=== PATIENT | male | born 1990 | race Caucasian/White ===

== ENCOUNTER 2020-12-08 17:42 | Emergency (ER) | payer MEDICAID, SELFPAY ==
[2020-12-08 17:58] VITALS: BP 134/83; PULSE 100; RESP 16; TEMP 36.8; O2SAT 97; BMI 30.7
--- NOTE | 2020-12-08 18:45 | ED.GENADULT ---
HPI - General Adult General Chief complaint: General Medical Stated complaint: strep Throat? Time Seen by Provider: 12/08/20 18:38 Source: patient Mode of arrival: ambulatory Limitations: no limitations History of Present Illness HPI narrative: 30-year-old male presenting to the ED with complaints of a sore throat with associated chills and congestion with white spots at the back of his throat that started today. Denies any other symptoms complaints or concerns at this time. Denies recent travel or sick contacts. Related Data Previous Rx's Medication Instructions Recorded acetaminophen-codeine 1 tab PO Q8H PRN #10 tab 12/08/20 amoxicillin-pot clavulanate 1 tab PO BID 10 Days #20 tab 12/08/20 [Augmentin] ibuprofen 800 mg PO Q8H PRN #14 tab 12/08/20 Allergies Allergy/AdvReac Type Severity Reaction Status Date / Time bee pollen [BEE STINGS] Allergy Unknown SWELLING Unverified 07/26/20 15:43 cat dander [CATS] Allergy Unknown HIVES Unverified 07/26/20 15:43 selenium sulfide Allergy Unknown hives Verified 12/02/18 00:00 Review of Systems Review of Systems: Constitutional : No Fever, No Chills, No fatigue, No Malaise ENT/Mouth : + sore throat, No runny nose Eyes: No Discharge Cardiovascular : No Chest Pain, No SOB Respiratory : No Cough, No Sputum, No Wheezing, No Smoke Exposure, No Dyspnea Gastrointestinal : No Nausea, No Vomiting, No Diarrhea Genitourinary : No irregular bleeding, No Dysuria, No Urinary Frequency, No Hematuria, No Urinary Incontinence, No Urgency, No Flank Pain, Musculoskeletal : No Myalgia Skin : No rash Neuro : No Headache Yes all other systems are reviewed and are negative [facility] Past Medical History Attestation statement: The following information was validated with the patient. Social History Social History Advance Directives: No Advance Directives Information Provided: Yes Physical Exam Vital Signs: Vital Signs: Last Vital Signs Temp 98.3 F 12/08/20 17:58 Pulse 100 12/08/20 17:58 Resp 16 12/08/20 17:58 BP 134/83 12/08/20 17:58 Pulse Ox 97 12/08/20 17:58 Body Mass Index 30.7 vital signs have been reviewed as normal and appeared to be correct. Blood pressure normal. Heart rate normal. Respiration rate normal. Temperature normal. Oxygen saturation normal. Appearance: Alert. Oriented X3. No acute distress. Head: Normal external exam. Normocephalic. Atraumatic. Eyes: PERRLA. EOMI. Conjunctiva and sclera normal. Eyelids normal. ENT: EAC normal. TM's Normal. Posterior pharynx erythematous with exudate on bilateral tonsils. Uvula midline. Not consistent with peritonsillar abscess. Moist mucous membranes. No trismus noted. No drooling noted. No muffled voice noted. Neck: Normal inspection. Neck supple. FROM. No adenopathy. Thyroid Normal. Trachea midline. No meningeal signs. No neck mass noted. CVS: Normal heart rate and rhythm. Heart sound normal. No murmurs noted. Pulses normal throughout. Respiratory: No respiratory distress. Painless inspiration. Breath sounds normal. No wheezes/rales/rhonchi noted. Chest nontender. No accessory muscle usage noted or decreased air movement noted. Back: Full range of motion noted. Skin: Skin warm and dry. Normal skin color. Normal skin turgor. No rashes/lesions/lacerations noted. Extremities: Extremities exhibit normal range of motion. Extremities nontender. Neuro: Oriented X 3. No motor deficit. No sensory deficit. Reflexes normal. Medical Decision Making Medical Records Medical records reviewed: Yes I reviewed the patient's medical records. Lab Data Lab results reviewed: Yes I reviewed the patient's lab results. Discharge Plan Discharge Clinical Impression: Pharyngitis Patient Disposition: Home, Self-Care Instructions: Pharyngitis (ED), COVID-19 (Coronavirus Disease 2019) (ED) Additional Instructions: Based on your symptoms and history we have sent a COVID-19. Although your RESULT IS PENDING at this time. RESULTS should return within 72 hours. At this time you will be contacted with either NEGATIVE OR POSITIVE results. -Please wait until we contact you for your results. At this time you will be okay for discharge. Please plan for self quarantine for up to 14 days. Do not expose yourself to others. You may not go to work. If testing does come back negative you may return to activities as long as you are no longer having any symptoms for at least 3 days. Please continue to follow cold instructions and wash your hands frequently. You may take Tylenol as directed on the bottle for pain or fever. Patient seen in the emergency department on 12/08/2020 and should be excused from work until negative test results AND until 72 hours without any symptoms AND at least 10 days have passed since symptoms first appeared or since last exposure to COVID-19 positive patient CDC Guidelines for home isolation: - Stay away from others - WEAR A MASK if you are sick AND STAY HOME - Cover your mouth and nose with a tissue when you cough or sneeze. Dispose of tissues in a lined trash can and wash your hands immediately with soap and water for at least 20 seconds. If soap and water are not available, clean hands with alcohol-based hand speeder worker that contains at least 60% alcohol. - Clean your hands often with soap and water for at least 20 seconds - Avoid touching your eyes, nose and mouth with unwashed hands - Do not share dishes, drinking glasses, cups, eating utensils, towels, or bedding with other people in your home. After using these items, wash them thoroughly with soap and water or put in the manager employee relations. - Clean high-touch surfaces in your isolation area ( sick room and bathroom) every day; let a caregiver clean and disinfect high-touch surfaces in other areas of the home. Clean the area or item with soap and water or another detergent if it is dirty. Then, use a household disinfectant. - Limit contact with pets and animals: If you must care for a pet, wash your hands before and after interacting with them). Prescriptions: New ibuprofen 800 mg tablet 800 mg PO Q8H PRN (Reason: pain) Qty: 14 RF: 0 acetaminophen-codeine 300-30 mg tablet 1 tab PO Q8H PRN (Reason: pain) Qty: 10 RF: 0 amoxicillin-pot clavulanate [Augmentin] 875-125 mg tablet 1 tab PO BID 10 Days Qty: 20 RF: 0 Referrals: Physician,Unknown [Primary Care Provider] - 2 days (Your PCP) Stand Alone Forms: Work/School Release Print Language: Mosotho
[2020-12-08 19:22] LABS: Influenza A PCR NEGATIVE (Negative); Influenza B PCR NEGATIVE (Negative); Resp Syncy Virus RNA Qual PCR NEGATIVE (Negative); SARS COV2 PCR INHOUSE NEGATIVE (Negative)
[2020-12-08] MEDS: Amoxicillin/Potassium Clav 875 MG TABLET PO (19:27)
[2020-12-08] MEDS: dexAMETHasone 2 MG TABLET 10 MG PO (19:27)
== END 2020-12-08 19:33 | disposition home or self-care (01) ==
PROVIDERS: Emergency Provider Internal Medicine
DX: J02.9 Acute pharyngitis, unspecified (principal); Z20.822 Contact with and (suspected) exposure to COVID-19
CPT/HCPCS: 0241U; 36415; 87071; 87147; 87880; 99283; J8540

== ENCOUNTER 2021-05-10 12:22 | Emergency (ER) | payer MEDICAID, SELFPAY ==
[2021-05-10 12:29] VITALS: BP 121/82; PULSE 85; RESP 16; TEMP 36.2; O2SAT 97; BMI 29.5
[2021-05-10] MEDS: predniSONE 20 MG TABLET 60 MG PO (13:17)
[2021-05-10] MEDS: Famotidine 20 MG TABLET 40 MG PO (13:18)
--- NOTE | 2021-05-10 13:41 | ED_ITS ---
HPI - Allergic Reaction General Chief complaint: Allergic Reaction Stated complaint: swollen lip Time Seen by Provider: 05/10/21 13:10 Source: patient Mode of arrival: ambulatory Limitations: no limitations History of Present Illness HPI narrative: 31-year-old male with a past medical history of allergic reactions to multiple substances here with complaints of upper lip swelling for approximately 2 hours. Took 2-25 mg Benadryl prior to arrival. does feel like the lip is improving but still has some mild swelling. No throat itching or swelling. No tongue itching or swelling. No difficulty swallowing, difficulty breathing, cough or shortness of breath. No vomiting or diarrhea. Unknown specific cause today Related Data Previous Rx's Medication Instructions Recorded acetaminophen-codeine 1 tab PO Q8H PRN #10 tab 12/08/20 amoxicillin-pot clavulanate 1 tab PO BID 10 Days #20 tab 12/08/20 [Augmentin] ibuprofen 800 mg PO Q8H PRN #14 tab 12/08/20 hydroxyzine HCl 25 mg PO Q6H PRN #10 tab 05/10/21 prednisone 40 mg PO DAILY #8 tab 05/10/21 Allergies Allergy/AdvReac Type Severity Reaction Status Date / Time bee pollen [BEE STINGS] Allergy Unknown SWELLING Verified 05/10/21 13:17 cat dander [CATS] Allergy Unknown HIVES Verified 05/10/21 13:17 selenium sulfide Allergy Unknown hives Verified 05/10/21 13:17 Review of Systems Review of Systems: Yes all other systems are reviewed and are negative Constitutional: Constitutional: Reports no additional constitutional complaints, Denies body ache(s), Denies chills, Denies fever(s), Denies headache(s) and Denies weakness Eyes: Eyes: Reports no additional eye complaints and Denies change in vision ENT: Reports system reviewed and no additional complaints, except as documented, Denies dizziness, Denies headache(s), Reports lip swelling, Denies nasal congestion, Denies nasal discharge and Denies neck pain Cardiovascular: Cardiovascular: Reports no additional cardiovascular complaints, Denies chest pain, Denies leg edema and Denies dyspnea Respiratory: Respiratory: Reports no additional respiratory complaints, Denies cough and Denies dyspnea Gastrointestinal: Gastrointestinal: Reports no additional gastrointestinal complaints, Denies abdominal pain, Denies diarrhea, Denies nausea and Denies vomiting Genitourinary: Genitourinary: Denies urinary incontinence Musculoskeletal: Musculoskeletal: Reports no additional musculoskeletal complaints, Denies back pain, Denies arthralgias, Denies joint swelling, Denies neck pain, Denies numbness and Denies tingling Integumentary/Breasts: Skin/Breast: Reports system reviewed and no additional complaints, except as docu and Denies rash Neurologic: Reports system reviewed and no additional complaints, except as documented, Denies Abnormal speech present, Denies dizziness, Denies headache(s), Denies numbness, Denies tingling and Denies weakness Allergic/Immunologic: Allergic/Immunologic: Reports lip swelling PMFSH Past Medical History Attestation statement: The following information was validated with the patient. Source: old records reviewed and nursing notes reviewed Social History Social History Advance Directives: Yes Advance Directives Information Provided: No Advance Directives on File: No Physical Exam Vital Signs: Vital Signs: Last Vital Signs Temp 97.2 F 05/10/21 12:29 Pulse 85 05/10/21 12:29 Resp 16 05/10/21 12:29 BP 121/82 05/10/21 12:29 Pulse Ox 97 05/10/21 12:29 Body Mass Index 29.5 Const: General: cooperative, healthy appearing, comfortable and no acute distress Orientation/consciousness: patient oriented x3 Limitations: no limitations HENMT: Head: Yes normal to inspection Ears: hearing grossly normal bilaterally General nose exam: Normal external nose present Nose image: 1. scant swelling Face and sinus: Yes normal facial exam Mouth: Normal oral and palatal mucosa present, lip normal and tongue normal Throat: Yes posterior oropharynx normal, Yes tonsils normal and Yes uvula midline Eyes: General: appearance normal, both eyes and all related structures Pupils: Equal, round and reactive pupils present Neck: Neck: Yes normal visual inspection Chest: Chest palpation & inspection: normal inspection of the chest Resp: Effort & Inspection: normal respiratory effort Auscultation: clear to auscultation bilaterally Cardio: Rate: regular rate Rhythm: regular rhythm Peripheral pulses: Peripheral pulses 2+ throughout GI: Inspection: Yes normal to inspection Palpation (GI): Soft to palpation and nontender Auscultation: normal bowel sounds Back/Spine/Pelvis: Thoracic/Lumbar Spine: thoracic and lumbar spine normal to inspection Skin: General skin exam: no rashes or lesions noted Neuro: General: patient oriented x3, no focal motor deficits and normal sensation to monofilament Cranial nerves: Yes Equal, round and reactive pupils present Cognition (Neuro): normal cognition Speech: No Abnormal speech present Gait exam (Neuro): Normal gait present Motor exam (neuro): 5/5 motor strength present throughout Extrem: General: Yes normal to inspection Course Course Course Narrative: mild right upper slipped swelling after contact with unknown substance. Patient took Benadryl prior to arrival in feels like it is improving. He received additional doses of prednisone and famotidine. He was monitored for 1 hour in the emergency department with improvement of his symptoms. He is requesting discharge home. I did recommend that he follow-up with his primary care doctor and ask for referral to or first assist registered nurse for further testing. Reviewed worrisome signs and symptoms and when to return to the emergency department. Comfortable discharge home. Discharge Plan Discharge Clinical Impression: Allergic reaction Patient Disposition: Home, Self-Care Instructions: Allergies (ED) Additional Instructions: start prednisone tomorrow continue benadryl as needed return for difficulty breathing, difficulty swallowing follow-up with your primary care doctor request a referral for or first assist registered nurse Prescriptions: New prednisone 20 mg tablet 40 mg PO DAILY Qty: 8 RF: 0 hydroxyzine HCl 25 mg tablet 25 mg PO Q6H PRN (Reason: itching) Qty: 10 RF: 0 No Action ibuprofen 800 mg tablet 800 mg PO Q8H PRN (Reason: pain) Qty: 14 RF: 0 acetaminophen-codeine 300-30 mg tablet 1 tab PO Q8H PRN (Reason: pain) Qty: 10 RF: 0 amoxicillin-pot clavulanate [Augmentin] 875-125 mg tablet 1 tab PO BID 10 Days Qty: 20 RF: 0 Referrals: Pancho Easley MD [Primary Care Provider] - 2 days Stand Alone Forms: Work/School Release Interventions: ED Discharge Assessment Last Done: 05/10/21 13:57 Discharge Date/Time: 05/10/21 13:58
== END 2021-05-10 13:58 | disposition home or self-care (01) ==
PROVIDERS: Emergency Provider Emergency Medicine Emergency Medical Services; PCP Internal Medicine
DX: T78.40XA Allergy, unspecified, initial encounter (principal); X58.XXXA Exposure to other specified factors, initial encounter
CPT/HCPCS: 99283; 99284

== ENCOUNTER 2021-05-28 10:26 | Emergency (ER) | payer MEDICAID, SELFPAY ==
--- NOTE | ~2021-05-28 | XR_ITS ---
EXAMINATION: XR CHEST CLINICAL INFORMATION: Epigastric pain COMPARISON: None TECHNIQUE: 2 views of the chest were obtained. FINDINGS: The lungs are well-expanded and clear of acute process. The heart size and pulmonary vascularity is normal. No gross bony abnormality seen. XR/XR chest 2V IMPRESSION: Unremarkable chest exam.
[2021-05-28 11:11] VITALS: BP 128/93; PULSE 81; RESP 19; TEMP 36.6; BMI 29.2
--- NOTE | 2021-05-28 11:14 | ECG_ITS ---
Test Reason : CHEST PAIN Blood Pressure : / mmHG Vent. Rate : 073 BPM Atrial Rate : 073 BPM P-R Int : 166 ms QRS Dur : 114 ms QT Int : 384 ms P-R-T Axes : 026 013 015 degrees QTc Int : 423 ms Normal sinus rhythm Normal ECG No previous ECGs available Referred By: Danielle Pierre Electronically Signed By:GLADIS REESE MD
--- NOTE | 2021-05-28 11:15 | ED.CHESTPAIN ---
HPI - Chest Pain General Chief Complaint: Chest Pain <Tim Glynn NP - Last Filed: 05/28/21 12:47> Stated Complaint: Epigastric Pain <Tim Glynn NP - Last Filed: 05/28/21 12:47> Time Seen by Provider: 05/28/21 11:06 <Tim Glynn NP - Last Filed: 05/28/21 12:47> Source: patient <Tim Glynn NP - Last Filed: 05/28/21 12:47> Mode of arrival: ambulatory <Tim Glynn NP - Last Filed: 05/28/21 12:47> Limitations: no limitations <Tim Glynn NP - Last Filed: 05/28/21 12:47> History of Present Illness HPI narrative: 31-year-old male here with complaints epigastric and substernal chest pain for the last several years but has been getting progressively worse over the last 2 months. Episodes occur intermittently. They occur both at rest and with exertion. Sometimes the patient feels like there is severe enough to take his breath away. He denies any associated nausea, vomiting, diarrhea, cough, fevers, chills. 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 He tells me that he has had outpatient EKGs which are normal but otherwise has not had any workup done. <Tim Glynn NP - Last Filed: 05/28/21 12:47> Related Data Home Medications: Previous Rx's Medication Instructions Recorded acetaminophen 300 mg-codeine 30 mg 1 tab PO Q8H PRN #10 tab 12/08/20 tablet amoxicillin 875 mg-potassium 1 tab PO BID 10 Days #20 tab 12/08/20 clavulanate 125 mg tablet (Augmentin) ibuprofen 800 mg tablet 800 mg PO Q8H PRN #14 tab 12/08/20 hydroxyzine HCl 25 mg tablet 25 mg PO Q6H PRN #10 tab 05/10/21 prednisone 20 mg tablet 40 mg PO DAILY #8 tab 05/10/21 omeprazole 20 mg capsule,delayed 20 mg PO DAILY #30 cap 05/28/21 release esomeprazole magnesium 40 mg 40 mg PO DAILY #30 cap 07/03/21 capsule,delayed release (Nexium) <CHEYANNE Jiménez Last Filed: 05/28/21 12:47> Allergies/Adverse Reactions: Allergies Allergy/AdvReac Type Severity Reaction Status Date / Time bee pollen [BEE STINGS] Allergy Unknown SWELLING Verified 05/10/21 13:17 cat dander [CATS] Allergy Unknown HIVES Verified 05/10/21 13:17 selenium sulfide Allergy Unknown hives Verified 05/10/21 13:17 <Tim Glynn NP - Last Filed: 05/28/21 12:47> Review of Systems Review of Systems: Yes all other systems are reviewed and are negative <Tim Glynn NP - Last Filed: 05/28/21 12:47> Constitutional: Constitutional: Reports no additional constitutional complaints, Denies body ache(s), Denies chills, Denies fever(s), Denies headache(s) and Denies weakness <Tim Glynn NP - Last Filed: 05/28/21 12:47> Eyes: Eyes: Reports no additional eye complaints and Denies change in vision <Tim Glynn NP - Last Filed: 05/28/21 12:47> ENT: Reports system reviewed and no additional complaints, except as documented, Denies dizziness, Denies headache(s), Denies nasal congestion, Denies nasal discharge and Denies neck pain <CHEYANNE Jiménez Last Filed: 05/28/21 12:47> Cardiovascular: Cardiovascular: Reports no additional cardiovascular complaints, Reports chest pain, Denies leg edema and Denies dyspnea <Tim Glynn NP - Last Filed: 05/28/21 12:47> Respiratory: Respiratory: Reports no additional respiratory complaints, Denies cough and Denies dyspnea <Tim Glynn NP - Last Filed: 05/28/21 12:47> Gastrointestinal: Gastrointestinal: Reports no additional gastrointestinal complaints, Reports abdominal pain, Denies diarrhea, Denies nausea and Denies vomiting <CHEYANNE Jiménez Last Filed: 05/28/21 12:47> Genitourinary: Genitourinary: Denies urinary incontinence <Tim Glynn NP - Last Filed: 05/28/21 12:47> Musculoskeletal: Musculoskeletal: Reports no additional musculoskeletal complaints, Denies back pain, Denies arthralgias, Denies joint swelling, Denies neck pain, Denies numbness and Denies tingling <Tim Glynn NP - Last Filed: 05/28/21 12:47> Integumentary/Breasts: Skin/Breast: Reports system reviewed and no additional complaints, except as docu and Denies rash <Tim Glynn NP - Last Filed: 05/28/21 12:47> Neurologic: Reports system reviewed and no additional complaints, except as documented, Denies Abnormal speech present, Denies dizziness, Denies headache(s), Denies numbness, Denies tingling and Denies weakness <Tim Glynn NP - Last Filed: 05/28/21 12:47> PMFSH Past Medical History Attestation statement: The following information was validated with the patient. <Tim Glynn NP - Last Filed: 05/28/21 12:47> Source: old records reviewed and nursing notes reviewed <Tim Glynn NP - Last Filed: 05/28/21 12:47> Social History Social History: Social History Alcohol intake: never Patient Tobacco Use Status: Never used Tobacco Use of substances other than those prescribed or required for medical reasons: No Advance Directives: No Advance Directives Information Provided: No <Tim Glynn NP - Last Filed: 05/28/21 12:47> Physical Exam Vital Signs: Vital Signs: Last Vital Signs Temp 97.9 F 05/28/21 11:11 Pulse 81 05/28/21 11:11 Resp 05/28/21 11:11 BP 128/93 H 05/28/21 11:11 Body Mass Index 29.2 <Tim Glynn NP - Last Filed: 05/28/21 12:47> Vital Signs: Last Vital Signs Temp 97.9 F 05/28/21 11:11 Pulse 81 05/28/21 11:11 Resp 05/28/21 11:11 BP 128/93 H 05/28/21 11:11 Body Mass Index 29.2 <Sreedhar Arias MD - Last Filed: 07/04/21 13:59> Const: General: cooperative, healthy appearing, comfortable and no acute distress <Tim Glynn NP - Last Filed: 05/28/21 12:47> Orientation/consciousness: patient oriented x3 <Tim Glynn NP - Last Filed: 05/28/21 12:47> Limitations: no limitations <Tim Glynn NP - Last Filed: 05/28/21 12:47> HENMT: Head: Yes normal to inspection <Tim Glynn NP - Last Filed: 05/28/21 12:47> Ears: hearing grossly normal bilaterally <Tim Glynn NP - Last Filed: 05/28/21 12:47> General nose exam: Normal external nose present <Tim Glynn NP - Last Filed: 05/28/21 12:47> Face and sinus: Yes normal facial exam <Tim Glynn NP - Last Filed: 05/28/21 12:47> Mouth: Normal oral and palatal mucosa present <Tim Glynn NP - Last Filed: 05/28/21 12:47> Throat: Yes posterior oropharynx normal <Tim Glynn NP - Last Filed: 05/28/21 12:47> Eyes: General: appearance normal, both eyes and all related structures <Tim Glynn NP - Last Filed: 05/28/21 12:47> Pupils: Equal, round and reactive pupils present <Tim Glynn NP - Last Filed: 05/28/21 12:47> Neck: Neck: Yes normal visual inspection <Tim Glynn NP - Last Filed: 05/28/21 12:47> Chest: Chest palpation & inspection: normal inspection of the chest and tenderness (Substernal/epigastric tenderness-no rebound/guarding ) <Tim Glynn NP - Last Filed: 05/28/21 12:47> Resp: Effort & Inspection: normal respiratory effort <Tim Glynn NP - Last Filed: 05/28/21 12:47> Auscultation: clear to auscultation bilaterally <Tim Glynn NP - Last Filed: 05/28/21 12:47> Cardio: Rate: regular rate <Tim Glynn NP - Last Filed: 05/28/21 12:47> Rhythm: regular rhythm <Tim Glynn NP - Last Filed: 05/28/21 12:47> Peripheral pulses: Peripheral pulses 2+ throughout <Tim Glynn NP - Last Filed: 05/28/21 12:47> GI: Inspection: Yes normal to inspection <Tim Glynn NP - Last Filed: 05/28/21 12:47> Palpation (GI): Soft to palpation and nontender <Tim Glynn NP - Last Filed: 05/28/21 12:47> Auscultation: normal bowel sounds <Tim Glynn NP - Last Filed: 05/28/21 12:47> Back/Spine/Pelvis: Thoracic/Lumbar Spine: thoracic and lumbar spine normal to inspection <Tim Glynn NP - Last Filed: 05/28/21 12:47> Skin: General skin exam: no rashes or lesions noted <Tim Glynn NP - Last Filed: 05/28/21 12:47> Neuro: General: patient oriented x3, no focal motor deficits and normal sensation to monofilament <Tim Glynn NP - Last Filed: 05/28/21 12:47> Cranial nerves: Yes Equal, round and reactive pupils present <Tim Glynn NP - Last Filed: 05/28/21 12:47> Cognition (Neuro): normal cognition <Tim Glynn NP - Last Filed: 05/28/21 12:47> Speech: No Abnormal speech present <Tim Glynn NP - Last Filed: 05/28/21 12:47> Gait exam (Neuro): Normal gait present <Tim Glynn NP - Last Filed: 05/28/21 12:47> Motor exam (neuro): 5/5 motor strength present throughout <Tim Glynn NP - Last Filed: 05/28/21 12:47> Extrem: General: Yes normal to inspection, Yes no pedal edema and Yes no calf tenderness <Tim Glynn NP - Last Filed: 05/28/21 12:47> Course Course Course Narrative: 31-year-old male here with substernal chest pain epigastric tenderness to palpate acute on chronic for the last few months. No other associated symptoms. Will check labs, EKG, chest x-ray, give GI cocktail and re-assess. 1245-labs, EKG and chest x-ray all unremarkable. Improvement in pain with GI cocktail. Likely underlying GERD. Less likely ACS with symptoms for years. Patient has outpatient follow-up with Cardiology. Will start PPI and have him follow up with GI as well. Reviewed worrisome signs and symptoms of when to return to the emergency department. Comfortable discharge home. <Tim Glynn NP - Last Filed: 05/28/21 12:47> Reevaluation(s) Reevaluation #1: I have reviewed the chart <Sreedhar Arias MD - Last Filed: 07/04/21 13:59> MDM - Chest Pain MDM Narrative Medical decision making narrative: gerd <Tim Glynn NP - Last Filed: 05/28/21 12:47> Differential Diagnosis Differential diagnosis: Likely atypical chest pain and costochondritis <Tim Glynn NP - Last Filed: 05/28/21 12:47> Medical Records Data Attestation: I reviewed the patient's medical records. <Tim Glynn NP - Last Filed: 05/28/21 12:47> Lab Data Attestation: I reviewed the patient's lab results. <Tim Glynn NP - Last Filed: 05/28/21 12:47> Result diagrams: : 05/28/21 11:29 05/28/21 11:29 <Tim Glynn NP - Last Filed: 05/28/21 12:47> Labs: Lab Results 05/28/21 05/28/21 05/28/21 Range/Units 11:29 11:29 11:29 WBC 6.4 (4.8-10.8) X10*3/uL RBC 5.62 (4.60-5.80) X10*6/uL Hgb 17.0 (14.0-18.0) g/dl Hct 52.0 (42-52) % MCV 92.5 (80-98) fL MCH 30.2 (27.0-33.0) pg MCHC 32.7 (31.0-36.0) g/dl RDW 12.7 (11.0-16.0) % Plt Count 279 (160-400) X10*3/uL MPV 9.4 (9.4-12.4) fL Immature Gran % (Auto) 0.3 (0.0-0.4) % Neut % (Auto) 65.8 (45-73) % Lymph % (Auto) 21.1 (20-40) % [place] % (Auto) 10.8 (2-11) % Eos % (Auto) 1.4 (0-4) % Baso % (Auto) 0.6 (0-2) % Lymph # (Auto) 1.4 (1.2-4.9) X10*3/uL [place] # (Auto) 0.7 (0.1-1.2) X10*3/uL Eos # (Auto) 0.1 (0.0-0.4) X10*3/uL Baso # (Auto) 0.0 (0.0-0.2) X10*3/uL Abs Immat Gran (auto) 0.02 (0.00-0.03) X10*3/uL Absolute Neuts (auto) 4.2 (2.0-8.3) X10*3/uL Absolute Nucleated RBC 0.000 (0.0-0.012) X10*3/uL Nucleated RBC % (auto) 0.0 (0.0-0.2) /100WBC Sodium 140 (135-145) mmol/L Potassium 4.6 (3.3-5.1) mmol/L Chloride 101 (96-108) mmol/L Carbon Dioxide 31 H (22-29) mmol/L Anion Gap 13 (12-20) BUN 15 (9-16) mg/dL Creatinine 1.04 (0.5-1.4) mg/dL Estim Creat Clear Calc 115.4 Estimated GFR > 60 Random Glucose 101 (60-115) mg/dL Calcium 10.0 (8.4-10.2) mg/dL Total Bilirubin 0.6 (0.0-1.0) mg/dL Direct Bilirubin 0.2 (0.0-0.5) mg/dL AST 27 (5-37) U/L ALT 36 (0-40) U/L Alkaline Phosphatase 77 (39-117) U/L Troponin I High Sens < 3.5 (<3.5-35.0) ng/L Total Protein 7.5 (6.5-8.0) g/dL Albumin 4.6 (3.5-5.0) g/dL Lipase 15 (8-78) U/L <Tim Glynn NP - Last Filed: 05/28/21 12:47> Lab Results 05/28/21 05/28/21 05/28/21 Range/Units 11:29 11:29 11:29 WBC 6.4 (4.8-10.8) X10*3/uL RBC 5.62 (4.60-5.80) X10*6/uL Hgb 17.0 (14.0-18.0) g/dl Hct 52.0 (42-52) % MCV 92.5 (80-98) fL MCH 30.2 (27.0-33.0) pg MCHC 32.7 (31.0-36.0) g/dl RDW 12.7 (11.0-16.0) % Plt Count 279 (160-400) X10*3/uL MPV 9.4 (9.4-12.4) fL Immature Gran % (Auto) 0.3 (0.0-0.4) % Neut % (Auto) 65.8 (45-73) % Lymph % (Auto) 21.1 (20-40) % Livingston % (Auto) 10.8 (2-11) % Eos % (Auto) 1.4 (0-4) % Baso % (Auto) 0.6 (0-2) % Lymph # (Auto) 1.4 (1.2-4.9) X10*3/uL Livingston # (Auto) 0.7 (0.1-1.2) X10*3/uL Eos # (Auto) 0.1 (0.0-0.4) X10*3/uL Baso # (Auto) 0.0 (0.0-0.2) X10*3/uL Abs Immat Gran (auto) 0.02 (0.00-0.03) X10*3/uL Absolute Neuts (auto) 4.2 (2.0-8.3) X10*3/uL Absolute Nucleated RBC 0.000 (0.0-0.012) X10*3/uL Nucleated RBC % (auto) 0.0 (0.0-0.2) /100WBC Sodium 140 (135-145) mmol/L Potassium 4.6 (3.3-5.1) mmol/L Chloride 101 (96-108) mmol/L Carbon Dioxide 31 H (22-29) mmol/L Anion Gap 13 (12-20) BUN 15 (9-16) mg/dL Creatinine 1.04 (0.5-1.4) mg/dL Estim Creat Clear Calc 115.4 Estimated GFR > 60 Random Glucose 101 (60-115) mg/dL Calcium 10.0 (8.4-10.2) mg/dL Total Bilirubin 0.6 (0.0-1.0) mg/dL Direct Bilirubin 0.2 (0.0-0.5) mg/dL AST 27 (5-37) U/L ALT 36 (0-40) U/L Alkaline Phosphatase 77 (39-117) U/L Troponin I High Sens < 3.5 (<3.5-35.0) ng/L Total Protein 7.5 (6.5-8.0) g/dL Albumin 4.6 (3.5-5.0) g/dL Lipase 15 (8-78) U/L <Sreedhar Arias MD - Last Filed: 07/04/21 13:59> Imaging Data Chest x-ray: Attestation: I personally reviewed and interpreted this imaging study as follows: <Tim Glynn NP - Last Filed: 05/28/21 12:47> Radiologist's impression: [address] [id number] ReportSigned Patient: Celestino Harris#: [id number]: 1990Acct:[id number]/Sex: 31 / MADM Date: 05/28/21Loc: EDAttending Dr: Ordering Physician: TIM GLYNN NP Date of Service: 05/28/21 Procedure(s): XR chest 2V Accession Number(s): [id number] cc: TIM GLYNN NP~ EXAMINATION: XR CHEST CLINICAL INFORMATION: Epigastric pain COMPARISON: None TECHNIQUE: 2 views of the chest were obtained. FINDINGS: The lungs are well-expanded and clear of acute process. The heart size and pulmonary vascularity is normal. No gross bony abnormality seen. XR/XR chest 2V IMPRESSION: Unremarkable chest exam. <Tim Glynn NP - Last Filed: 05/28/21 12:47> ECG Data ECG #1: Attestation: I personally reviewed and interpreted this ECG as follows: <Tim Glynn NP - Last Filed: 05/28/21 12:47> ECG interpretation date: 05/28/21 <Tim Glynn NP - Last Filed: 05/28/21 12:47> ECG interpretation time: 11:31 <Tim Glynn NP - Last Filed: 05/28/21 12:47> Interpretation: nr with rate 73, normal pr, normal qrs, normal qtc <Tim Glynn NP - Last Filed: 05/28/21 12:47> Discharge Plan Discharge Clinical Impression: Atypical chest pain <Tim Glynn NP - Last Filed: 05/28/21 12:47> Patient Disposition: Home, Self-Care <Tim Glynn NP - Last Filed: 05/28/21 12:47> Instructions: Chest Pain (ED) <Tim Glynn NP - Last Filed: 05/28/21 12:47> Prescriptions: New omeprazole 20 mg capsule,delayed release(DR/EC) 20 mg PO DAILY Qty: 30 RF: 0 No Action ibuprofen 800 mg tablet 800 mg PO Q8H PRN (Reason: pain) Qty: 14 RF: 0 acetaminophen-codeine 300-30 mg tablet 1 tab PO Q8H PRN (Reason: pain) Qty: 10 RF: 0 amoxicillin-pot clavulanate [Augmentin] 875-125 mg tablet 1 tab PO BID 10 Days Qty: 20 RF: 0 prednisone 20 mg tablet 40 mg PO DAILY Qty: 8 RF: 0 hydroxyzine HCl 25 mg tablet 25 mg PO Q6H PRN (Reason: itching) Qty: 10 RF: 0 esomeprazole magnesium [Nexium] 40 mg capsule,delayed release(DR/EC) 40 mg PO DAILY Qty: 30 RF: 0 <Tim Glynn NP - Last Filed: 05/28/21 12:47> Referrals: Mellissa Arriola MD [Physician] - 2 days <Tim Glynn NP - Last Filed: 05/28/21 12:47> Interventions: ED Discharge Assessment Last Done: 05/28/21 12:46 <Tim Glynn NP - Last Filed: 05/28/21 12:47> Discharge Date/Time: 05/28/21 12:47 <Tmi Glynn NP - Last Filed: 05/28/21 12:47>
[2021-05-28 11:33] LABS: MANUAL DIFF FLAG NO
[2021-05-28] MEDS: Magnesium Hydrox/Alum Hydrox 30 ML ORAL.SUSP PO (11:33)
[2021-05-28] MEDS: Lidocaine HCl Viscous 2 % 15 ML SOLUTION MUCOUS MEM (11:33)
[2021-05-28 11:37] LABS: Basophils Percent Auto 0.6 % (0-2); Eosinophils Absolute Auto 0.1 X10*3/uL (0.0-0.4); Eosinophils Percent Auto 1.4 % (0-4); Imm Gran Abs Auto 0.02 X10*3/uL (0.00-0.03); Imm Gran Pct Auto 0.3 % (0.0-0.4); Lymphocytes Absolute Auto 1.4 X10*3/uL (1.2-4.9); Lymphocytes Percent Auto 21.1 % (20-40); Mean Corpuscular HGB Conc 32.7 g/dl (31.0-36.0); Mean Corpuscular Hemoglobin 30.2 pg (27.0-33.0); Mean Corpuscular Volume 92.5 fL (80-98); Mean Platelet Volume 9.4 fL (9.4-12.4); Monocytes Absolute Auto 0.7 X10*3/uL (0.1-1.2); Monocytes Percent Auto 10.8 % (2-11); Neutrophils Absolute Auto 4.2 X10*3/uL (2.0-8.3); Neutrophils Percent Auto 65.8 % (45-73); Platelet Count 279 X10*3/uL (160-400); Red Blood Count 5.62 X10*6/uL (4.60-5.80); Red Cell Distribution Width 12.7 % (11.0-16.0); White Blood Count 6.4 X10*3/uL (4.8-10.8)
[2021-05-28 11:58] LABS: Alanine Aminotransferase 36 U/L (0-40); Albumin Level 4.6 g/dL (3.5-5.0); Alkaline Phosphatase 77 U/L (39-117); Anion Gap 13 (12-20); Aspartate Amino Transferase 27 U/L (5-37); Bilirubin Direct 0.2 mg/dL (0.0-0.5); Bilirubin Total 0.6 mg/dL (0.0-1.0); Blood Urea Nitrogen 15 mg/dL (9-16); Carbon Dioxide 31 mmol/L (22-29); Chloride 101 mmol/L (96-108); Creatinine Clr Calc Pharmacy 115.4; Estimated Glomerular Filt Rate > 60; Glucose Random 101 mg/dL (60-115); Lipase 15 U/L (8-78); Potassium 4.6 mmol/L (3.3-5.1); Sodium 140 mmol/L (135-145); Total Protein 7.5 g/dL (6.5-8.0)
[2021-05-28 12:02] LABS: Troponin-I High Sensitivity < 3.5 ng/L (<3.5-35.0)
== END 2021-05-28 12:47 | disposition home or self-care (01) ==
PROVIDERS: Nurse Practitioner Family; Emergency Provider Emergency Medicine
DX: R07.89 Other chest pain (principal)
CPT/HCPCS: 36415; 71046; 80048; 80076; 83690; 84484; 85025; 93005; 99284

== ENCOUNTER 2021-07-03 13:56 | Emergency (ER) | payer MEDICAID, SELFPAY ==
--- NOTE | 2021-07-03 14:24 | ED.ABDPAIN ---
HPI - Abdominal Pain General Stated Complaint: sternum pain Time Seen by Provider: 07/03/21 14:21 Source: patient Mode of arrival: ambulatory Limitations: no limitations History of Present Illness HPI narrative: 31-year-old male came in for evaluation epigastric/midsternal pain, symptoms has been going on for few months, patient was seen and evaluated several times for same pain. Pain is mostly epigastric/mid sternum with no radiation, pain is more less constant but waxes and wanes, no other associated symptoms nausea, vomiting, diarrhea, no shortness of breath. Nothing make it better or worse. Related Data Previous Rx's Medication Instructions Recorded acetaminophen 300 mg-codeine 30 mg 1 tab PO Q8H PRN #10 tab 12/08/20 tablet amoxicillin 875 mg-potassium 1 tab PO BID 10 Days #20 tab 12/08/20 clavulanate 125 mg tablet (Augmentin) ibuprofen 800 mg tablet 800 mg PO Q8H PRN #14 tab 12/08/20 hydroxyzine HCl 25 mg tablet 25 mg PO Q6H PRN #10 tab 05/10/21 prednisone 20 mg tablet 40 mg PO DAILY #8 tab 05/10/21 omeprazole 20 mg capsule,delayed 20 mg PO DAILY #30 cap 05/28/21 release esomeprazole magnesium 40 mg 40 mg PO DAILY #30 cap 07/03/21 capsule,delayed release (Nexium) Allergies Allergy/AdvReac Type Severity Reaction Status Date / Time bee pollen [BEE STINGS] Allergy Unknown SWELLING Verified 05/10/21 13:17 cat dander [CATS] Allergy Unknown HIVES Verified 05/10/21 13:17 selenium sulfide Allergy Unknown hives Verified 05/10/21 13:17 Review of Systems Review of Systems All other systems are reviewed and are negative Constitutional: Reports as per HPI and Reports no additional constitutional complaints Eyes: Reports as per HPI and Reports no additional eye complaints Reports system reviewed and no additional complaints, except as documented Cardiovascular: Reports as per HPI and Reports no additional cardiovascular complaints Respiratory: Reports as per HPI and Reports no additional respiratory complaints Gastrointestinal: Reports as per HPI and Reports no additional gastrointestinal complaints Genitourinary: Reports no additional female genitourinary complaints Musculoskeletal: Reports no additional musculoskeletal complaints Skin/Breast: Reports system reviewed and no additional complaints, except as docu Psychiatric: Reports no additional psychiatric complaints Endocrine: Reports no additional endocrine complaints Hematologic/Lymphatic: Reports no additional hematologic/lymphatic complaints Allergic/Immunologic: Reports no additional allergic/immunologic complaints Reports system reviewed and no additional complaints, except as documented and Reports Abnormal speech present Physical Exam Vital Signs: Vital Signs: Vital signs have been reviewed as appeared to be correct. Blood pressure normal. Heart rate normal. Respiration rate normal. Temperature normal. Oxygen saturation normal. Appearance: Alert. Oriented X3. No acute distress. Head: Normal external exam. Normocephalic. Atraumatic. No Joseph signs noted. No raccoon eyes noted Eyes: PERRLA. EOMI. Conjunctiva and sclera normal. Eyelids normal. ENT: TM's Normal. Pharynx normal. Uvula midline. Moist mucous membranes. No trismus noted. No drooling noted. No muffled voice noted. Neck: Normal inspection. Neck supple. FROM. No adenopathy. Thyroid Normal. No meningeal signs. No neck mass noted. CVS: Normal heart rate and rhythm. Heart sound normal. No murmurs noted. Pulses normal throughout. Respiratory: No respiratory distress. Painless inspiration. Breath sounds normal. No wheezes/rales/rhonchi noted. Chest nontender. No accessory muscle usage noted or decreased air movement noted. Abdomen: Soft, mild epigastric tenderness, no rebound tenderness, no guarding. Bowel sounds normal in all 4 quadrants. No distention noted. No organomegaly noted. No visible injury noted. Back: No CVA tenderness. Full range of motion noted. Skin: Skin warm and dry. Normal skin color. Normal skin turgor. No rashes/lesions/lacerations noted. Extremities: No lower extremity edema. Extremities exhibit normal range of motion. Extremities nontender. Neuro: Oriented X 3. Cranial nerve exam: II-XII are grossly intact No motor deficit. No sensory deficit. Reflexes normal. Course Course Course Narrative: Assessment and plan. 31-year-old male seen and evaluated several times for epigastric/lower chest pain that then going for few months, patient was instructed to avoid spicy/greasy food and alcohol, and follow-up with hydraulic engineer for possible potential peptic ulcer disease. Because the patient lost his medication will represcribe Nexium. Discharge Plan Discharge Clinical Impression: Gastritis Patient Disposition: Home, Self-Care Instructions: Gastritis (ED) Prescriptions: New esomeprazole magnesium [Nexium] 40 mg capsule,delayed release(DR/EC) 40 mg PO DAILY Qty: 30 RF: 0 No Action ibuprofen 800 mg tablet 800 mg PO Q8H PRN (Reason: pain) Qty: 14 RF: 0 acetaminophen-codeine 300-30 mg tablet 1 tab PO Q8H PRN (Reason: pain) Qty: 10 RF: 0 amoxicillin-pot clavulanate [Augmentin] 875-125 mg tablet 1 tab PO BID 10 Days Qty: 20 RF: 0 prednisone 20 mg tablet 40 mg PO DAILY Qty: 8 RF: 0 hydroxyzine HCl 25 mg tablet 25 mg PO Q6H PRN (Reason: itching) Qty: 10 RF: 0 omeprazole 20 mg capsule,delayed release(DR/EC) 20 mg PO DAILY Qty: 30 RF: 0 Referrals: Sancho Dow MD [Physician] - 2 days Stand Alone Forms: Work/School Release PMFSH Social History Social History Advance Directives: No Advance Directives Information Provided: No
[2021-07-03 14:52] VITALS: BP 119/78; PULSE 81; RESP 16; TEMP 36.8; O2SAT 97; BMI 29.5
[2021-07-03 15:00] VITALS: BP 119/78; PULSE 81; RESP 16; TEMP 36.8; O2SAT 97
== END 2021-07-03 15:09 | disposition home or self-care (01) ==
PROVIDERS: Emergency Provider Emergency Medicine; PCP Internal Medicine
DX: K29.70 Gastritis, unspecified, without bleeding (principal); R10.13 Epigastric pain; Z79.899 Other long term (current) drug therapy
CPT/HCPCS: 99283; 99284

== ENCOUNTER 2022-03-09 19:24 | Emergency (ER) | payer MEDICAID, SELFPAY | END 2022-03-09 20:55 | disposition left against medical advice (07) | PROVIDERS: Emergency Provider Emergency Medicine | DX: R68.89 Other general symptoms and signs (principal) ==